=== PATIENT | female | born 1980 | race Caucasian/White ===

== ENCOUNTER → 2021-04-25 10:37 | Outpatient (CLI) | payer OTHER, SELFPAY ==
--- NOTE | ~2021-04-25 | MM_ITS ---
EXAMINATION: MM screening wendy BI w tasha HISTORY: Screening TECHNIQUE: Craniocaudal and mediolateral oblique 3-D tomosynthesis images were obtained and synthetic 2-D images were generated. CAD analysis was submitted and interpreted. COMPARISON: No prior mammogram is available for comparison at this institution. BREAST PARENCHYMAL COMPOSITION: There are scattered areas of fibroglandular density. FINDINGS: There is a mass in the upper outer quadrant of the right breast. There are no suspicious ma sses, calcifications or architectural distortion in the left breast to suggest malignancy. IMPRESSION: 1. Right breast mass, upper outer quadrant, middle third. 2. Additional mammographic views and possible breast ultrasound are recommended. BI-RADS Category 0: Incomplete: Needs additional imaging evaluation. Reviewed, dictated and finalized at location [facility]. IMPRESSION: 1. Right breast mass, upper outer quadrant, middle third. 2. Additional mammographic views and possible breast ultrasound are recommended . BI-RADS Category 0: Incomplete: Needs additional imaging evaluation.
== END ==
PROVIDERS: PCP Family Medicine Adolescent Medicine; Visit Provider Physician Assistant
DX: Z12.31 Encounter for screening mammogram for malignant neoplasm of breast (principal); R92.8 Other abnormal and inconclusive findings on diagnostic imaging of breast
CPT/HCPCS: 77063; 77067

== ENCOUNTER → 2021-06-02 09:04 | Outpatient (CLI) | payer OTHER, SELFPAY ==
--- NOTE | ~2021-06-02 | MMUS_ITS ---
EXAMINATION: MM diagnostic wendy RT w tasha, US breast RT limited HISTORY: Upper outer quadrant right breast mass reported on 04/25/2021 screening mammogram TECHNIQUE: Additional 3-D tomosynthesis images of the right breast were performed and synthetic 2-D i mages were generated. CAD analysis was submitted and interpreted. High resolution upper outer quadran t right breast ultrasound was performed. COMPARISON: 04/25/2021 bilateral digital screening mammogram BREAST PARENCHYMAL COMPOSITION: There are scattered areas of fibroglandular density. FINDINGS: MAMMOGRAPHIC FINDINGS: There is an approximately 11 mm asymmetric opacity in the upper outer quadrant of the right breast. T his is partially obscured by surrounding fibroglandular stroma. ULTRASOUND: There is a parallel circumscribed hypoechoic solid mass measuring 6.6 x 11.8 mm, with through transmi ssion. This is likely a benign fibroadenoma. No prior examinations are available for comparison, the 04/25/2021 bilateral digital screening mammogram examination was reportedly a baseline examination. IMPRESSION: 1. 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 6 month upper outer quadrant right breast ultrasound follow-up is recommended BI-RADS category 3, probably benign findings. Reviewed, dictated and finalized at location [facility]. IMPRESSION: 1. 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 6 month upper outer quadrant right breast ultrasound follow-up is recommende d BI-RADS category 3, probably benign findings.
== END ==
PROVIDERS: PCP Family Medicine Adolescent Medicine; Visit Provider Physician Assistant
DX: N63.11 Unspecified lump in the right breast, upper outer quadrant (principal); R92.8 Other abnormal and inconclusive findings on diagnostic imaging of breast
CPT/HCPCS: 76642; 77061; 77065; G0279

== ENCOUNTER → 2021-12-08 08:06 | Outpatient (CLI) | payer OTHER, SELFPAY ==
--- NOTE | ~2021-12-08 | US_ITS ---
US breast RT limited DATE: 12/08/2021 08:31 INDICATION: Six-month follow-up of right 10:00 breast mass TECHNIQUE: High-resolution ultrasound imaging of right breast targeted at 10:00 7.5 cm from nipple COMPARISON: 06/02/2021 diagnostic right mammogram and limited right breast ultrasound FINDINGS: There is a stable circumscribed hypoechoic solid lesion measuring approximately 7 x 12 x 10 mm, with through transmission, unchanged in size and sonographic features since 06/02/2021. The sono graphic features suggest benign process, most likely benign fibroadenoma. IMPRESSION: BI-RADS Category 3: Probably benign Recommendation: Diagnostic bilateral mammogram follow-up and targeted right breast ultrasound at 10:0 0 in 6 months Reviewed, dictated and finalized at [facility]. Reviewed, dictated and finalized at [facility]. IMPRESSION: BI-RADS Category 3: Probably benign Recommendation: Diagnostic bilateral mammogram follow-up and targeted right gianna ast ultrasound at 10:00 in 6 months
== END ==
PROVIDERS: PCP Family Medicine Adolescent Medicine; Visit Provider Physician Assistant
DX: N63.0 Unspecified lump in unspecified breast (principal); R92.8 Other abnormal and inconclusive findings on diagnostic imaging of breast
CPT/HCPCS: 76642

== ENCOUNTER → 2022-09-02 08:21 | Outpatient (CLI) | payer OTHER, SELFPAY ==
--- NOTE | ~2022-09-02 | MMUS_ITS ---
EXAMINATION: MM diagnostic wendy BI w tasha, US breast RT complete HISTORY: Six-month follow-up of right breast 10:00 12 mm circumscribed mass TECHNIQUE: ML, MLO and CC 3-D tomosynthesis images of both breasts were performed and synthetic 2-D i mages were generated. CAD analysis was submitted and interpreted. High resolution complete right chata st ultrasound examination including all 4 quadrants and subareolar area was performed. COMPARISON: 12/08/2021 Limited right breast ultrasound 06/02/2021 diagnostic right mammogram and limited right breast ultrasound 04/25/2021 bilateral screening mammogram BREAST PARENCHYMAL COMPOSITION: There are scattered areas of fibroglandular density. FINDINGS: MAMMOGRAPHIC FINDINGS: Stable approximately 12 mm circumscribed mass again noted in the posterior aspect of the upper outer quadrant of the right breast. Question of approximately 6 mm small mass in her mid right breast (craniocaudal Tomosynthesis image 3 ), not confirmed on MLO view or rolled medial and rolled lateral CC views. Complete right breast ultrasound examination was performed Otherwise no suspicious mass, architectural distortion, malignant calcification, skin thickening or r etraction or significant new or developing density of either breast is detected. ULTRASOUND: Stable circumscribed oval parallel to 12.2 mm mass at 10:00 7.5 cm from the nipple, unchanged in size or sonographic features, without internal vascularity or posterior shadowing, since 12/08/2021 or 05/10, likely a benign fibroadenoma. IMPRESSION: 1. Benign finding 2. Routine annual mammographic screening is recommended BI-RADS Category 2: Benign finding(s). Reviewed, dictated and finalized at location [facility]. [employer] IMPRESSION: 1. Benign finding 2. Routine annual mammographic screening is recommended BI-RADS Category 2: Benign finding(s).
== END ==
PROVIDERS: PCP Family Medicine Adolescent Medicine; Visit Provider Family Medicine Adolescent Medicine
DX: R92.8 Other abnormal and inconclusive findings on diagnostic imaging of breast (principal)
CPT/HCPCS: 76641; 77062; 77066; G0279